=== PATIENT | female | born 1955 | race Caucasian/White ===

== ENCOUNTER 2017-01-24 09:48 | Emergency (ER) | payer OTHER ==
[~2017-01-24 09:48] MED LIST: ADVIL PO; CINNAMONPO; CLARIT10 PO; DIOVAN HCT320 MG/25 PO; FORTAMET500 MG PO; HARD NAILS PO; K-TABS10 MEQ PO; K500 PO; L20 PO; LANTUSCART SC; MOBIC15 MG PO; PROVHFA INH; VITAMIN D31000 UNIT PO; [UNRECOGNIZED DRUG - OTHER] IM/SC
[2017-01-24 10:51] LABS: BASOPHILS 0.1 %; BASOPHILS ABSOLUTE 0.01 10/3/uL (0.0-0.16); EOSINOPHILS ABSOLUTE 0.09 10/3/uL (0.0-0.53); ER CBC TAT 0 Hrs 03 Mins; HEMATOCRIT 38.4 % (36.0-48.0); HEMOGLOBIN 13.1 g/dL (12.0-16.0); IMMATURE GRANULOCYTES 0.1 %; IMMATURE GRANULOCYTES ABSOLUTE 0.01 10/3/uL (0.0-0.11); LYMPHOCYTES 11.4 %; LYMPHOCYTES ABSOLUTE 1.04 10/3/uL (0.67-4.30); MEAN CORPUS HGB CONC 34.1 g/dL (32.0-36.0); MEAN CORPUSCULAR HEMOGLOB 30.4 pg (26.0-34.0); MEAN CORPUSCULAR VOLUME 89.1 fL (80-100); MEAN PLATELET VOLUME 10.1 fL (9.2-13.0); MONOCYTES 8.1 %; MONOCYTES ABSOLUTE 0.74 10/3/uL (0.21-1.20); NEUTROPHILS 79.3 %; NEUTROPHILS ABSOLUTE 7.27 10/3/uL (2.02-8.40); PLATELET COUNT 224 10/3/uL (150-400); RBC DISTRIBUTION WIDTH 13.6 % (12.0-16.0); RED CELL COUNT 4.31 10/6/uL (4.0-5.6); WHITE BLOOD CELLS 9.2 10/3/uL (4.5-10.5)
[2017-01-24 10:52] LABS: MANUAL DIFF NO %
[2017-01-24 11:07] LABS: A/G RATIO 0.9 (0.7-1.9); ALBUMIN 3.4 G/DL (3.5-5.0); ALKALINE PHOSPHATASE 85 U/L (45-117); CHLORIDE, SERUM 103 MMOL/L (96-112); CO2 (CARBON DIOXIDE) 28 MMOL/L (24-34); GFR AFRICAN AMERICAN 62 ML/MIN (>=60); GFR NON AFRICAN AMERICAN 53 ML/MIN (>=60); GLOBULIN 3.7 G/DL (2.5-4.1); SGOT(AST) 16 U/L (5-40); SGPT(ALT) 30 U/L (5-65); SODIUM, SERUM 139 MMOL/L (135-148); TOTAL BILIRUBIN 0.5 MG/DL (0-1.2); TOTAL PROTEIN 7.1 G/DL (6.0-8.5)
[2017-01-24 11:14] LABS: BUN (BLOOD UREA NITROGEN) 17 MG/DL (6-23); GLUCOSE, SERUM 270 MG/DL (60-99)
== END 2017-01-24 11:57 | disposition home or self-care (01) ==
LOC: ER 09:48
PROVIDERS: Emergency Medicine
DX: L27.0 Generalized skin eruption due to drugs and medicaments taken internally (principal); L50.0 Allergic urticaria; T49.0X5A Adverse effect of local antifungal, anti-infective and anti-inflammatory drugs, initial encounter; I10 Essential (primary) hypertension; E11.9 Type 2 diabetes mellitus without complications; Z88.2 Allergy status to sulfonamides; Z88.1 Allergy status to other antibiotic agents; Z79.899 Other long term (current) drug therapy
CPT/HCPCS: 80053; 85025; 93005; 96374; 99283; J1200; J2930